=== PATIENT | male | born 1980 | race Caucasian/White ===

== ENCOUNTER 2017-09-13 21:55 | Emergency (ER) | payer OTHER ==
[~2017-09-13] VITALS: Ht 170.2 cm; Wt 68.0 kg
[2017-09-13 22:00] VITALS: Ht 170.2 cm; Wt 68.0 kg
[2017-09-14 01:26] VITALS: BP 122/85
== END 2017-09-14 01:26 | disposition home or self-care (01) ==
LOC: ED 21:55
DX: N45.1 Epididymitis (principal); F41.9 Anxiety disorder, unspecified; Z88.1 Allergy status to other antibiotic agents
CPT/HCPCS: Q0092